=== PATIENT | female | born 1990 | race Caucasian/White ===

== ENCOUNTER 2021-10-12 08:31 | Outpatient (CLI) | payer BC, SELFPAY ==
--- NOTE | 2021-10-12 08:45 | CRLHL7_ITS ---
For Patients: As a result of the Century Cures Act, medical imaging exams and procedure reports are released immediately into your electronic medical record. You may view this report before your referring provider. If you have questions, please contact your health care provider. INDICATION: Evaluate anatomy. COMPARISON: none TECHNIQUE: Real time doty scale imaging of the fetus was performed as well as color Doppler analysis of the umbilical vessels. FINDINGS: Sonographic imaging demonstrates a single living intrauterine gestation. Fetus demonstrates a regular cardiac rate of 152 beats per minute. Fetus demonstrates multiple orientations throughout the examination. The placenta lies posteriorly without evidence of placenta previa. Amniotic fluid volume appears normal. Single deepest vertical pocket: 2.9 cm. The cervix is closed and measures 3.9 cm in length. The composite ultrasound gestational age is calculated at 21 weeks 2 days with an estimated sonographic due date of February 20, 2022. The estimated weight is 448 grams which lies at the 54th percentile. The following biometric measurements were obtained: Biparietal diameter: 4.4 cm/19 weeks 3 days less than the 3rd% Head circumference: 19.0 cm/21 weeks 2 days 28% Abdominal circumference: 17.1 cm/22 weeks 0 days 59% Femur length: 3.7 cm/21 week 6 days 48% The HC/AC ratio measures: 1.1 range (1.06-1.24) On anatomic survey, there is a normal appearance of the cerebral ventricles, cisterna magna and cerebellum. The nose, lips, and facial profile appear normal. 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 Additionally the nuchal fold appears to be at the upper limit of normal measuring just under 6 mm. The cervical, thoracic and lumbar spine are well visualized and appear normal. There is a normal four-chamber heart view and the left and right ventricular outflow tracts appear normal. diaphragm, stomach, kidneys and bladder appear normal. There is a normal three-vessel cord and cord insertion site. The right foot and right hand appear grossly normal. However the left hand may have 6 fingers and the left foot may also have 6 toes. Given these anomalies described above, a level II obstetrical ultrasound is recommended. IMPRESSION: Normal OB ultrasound exam with concordance of clinical and sonographic dating. However the anatomic survey suggests dolichocephaly, a nuchal fold toward the upper limit of normal at 6 mm, and possible polydactyly of the left hand and foot. A level II ultrasound is recommended. Dictated by Misha Kerr MD @ 10/12/2021 10:23:08 AM (Electronically Signed)
== END 2021-10-12 08:32 | disposition home or self-care (01) ==
LOC: US 08:33
PROVIDERS: Visit Provider Obstetrics & Gynecology
DX: Z34.92 Encounter for supervision of normal pregnancy, unspecified, second trimester (principal); O35.8XX0 Maternal care for other (suspected) fetal abnormality and damage, not applicable or unspecified; Z3A.21 21 weeks gestation of pregnancy
CPT/HCPCS: 76805

== ENCOUNTER 2021-11-30 10:09 | Outpatient (CLI) | payer BC, SELFPAY ==
[2021-12-01 18:45] LABS: Rapid Plasma Reagin (RPR) Non Reactive (Non Reactive)
== END 2021-11-30 10:10 | disposition home or self-care (01) ==
PROVIDERS: Visit Provider Physician Assistant
DX: Z34.93 Encounter for supervision of normal pregnancy, unspecified, third trimester (principal); Z3A.28 28 weeks gestation of pregnancy
CPT/HCPCS: 86592; 86850

== ENCOUNTER 2021-12-04 08:00 | Outpatient (CLI) | payer BC, SELFPAY | END 2021-12-04 08:01 | disposition home or self-care (01) | LOC: NFLDREF 12-15 09:16 | PROVIDERS: Visit Provider Physician Assistant | DX: Z34.93 Encounter for supervision of normal pregnancy, unspecified, third trimester (principal) | CPT/HCPCS: 82952 ==

== ENCOUNTER 2022-01-22 15:18 | Outpatient (CLI) | payer BC, SELFPAY ==
[2022-01-23 14:22] LABS: Strep B DNA Probe NEGATIVE (Negative)
[2022-01-23 15:36] LABS: Strep B Pen/Amox Allergy No
== END 2022-01-22 15:19 | disposition home or self-care (01) ==
PROVIDERS: Visit Provider Physician Assistant
DX: Z34.83 Encounter for supervision of other normal pregnancy, third trimester (principal); Z3A.36 36 weeks gestation of pregnancy
CPT/HCPCS: 87081; 87653

== ENCOUNTER 2022-02-13 00:50 | Inpatient (IN) | payer BC, SELFPAY ==
[2022-02-13] VITALS (16 sets, daily range): BP systolic 98–133; BP diastolic 58–84; PULSE 69–97; RESP 14–18; TEMP 36.5–37.1; O2SAT 96–100; BMI 23.1
--- OUTSIDE RECORDS SUMMARY | 2022-02-13 00:46 | XMS_ITS | Encounter Summary ---
:1990 Author Organization [place] Address [facility] [place] [address] Care Team Providers Name Role Phone Unavailable Primary Care Provider Unavailable Reason for Visit Reason Comments Ultrasound [id number] Encounter Details Date Type Department Care Team Description 11/08/2021 Office Visit [facility] Venu Narayan MD [address] [place] [address] Encounter for Maternal Yordy Cooney MD [address] [place] [address] follow-up ultrasound [facility] (Primary Dx) [address] [facility] [address] [place] [address] Social History Tobacco Use Types Packs/Day Years Used Date Smoking Tobacco: Never Assessed Sex Assigned at Date Recorded Not on file COVID-19 Exposure Response Date Recorded In the last 10 days, have you been in contact with No / Unsu re 11/08/2021 10:07 AM CDT someone who was confirmed or suspected to have Coronavirus/COVID-19? documented as of this encounter Progress Notes Yordy Cooney MD - 11/08/2021 10:45 AM CDT Please see Imaging tab under Chart Review for details of today's US at the [facility]. Yordy Cooney MD Maternal- Medicine documented in this encounter Plan of Treatment Not on filedocumented as of this encounter Visit Diagnoses Diagnosis Encounter for follow-up ultrasound of fe steve anatomy - Primary documented in this encounter
--- OUTSIDE RECORDS SUMMARY | 2022-02-13 00:46 | XMS_ITS | Clinical Summary ---
:1990 Author Organization [place] Address [address] [place] [address] Care Team Providers Name Role Phone Unavailable Primary Care Provider Unavailable Social History Tobacco Use Types Packs/Day Years Used Date Smoking Tobacco: Never Assessed Estimated Date of Delivery Comments Yes 02/18/2022 Based on last menstr ual period of 05/14/2021 Sex Assigned at Date Recorded Not on file Plan of Treatment Health Maintenance Due Date Last Done Comments ADVANCE CARE PLANNING 1990 ANNUAL REVIEW OF HM ORDERS 1989 HEPATITIS B IMMUNIZATION (1 1989 of 3 - 3-dose series) YEARLY PREVENTIVE VISIT 1989 HIV SCREENING 2004 HEPATITIS C SCREENING 12/09/2007 PAP 2010 DTAP/TDAP/TD IMMUNIZATION 2014 (1 - Tdap) PHQ-2 (once per calendar 03/18/2021 year) MATERNAL SCREENING 08/27/2021 OBGCT (OB) 10/29/2021 INFLUENZA VACCINE (#1) 2021 REPEAT ANTIBODY SCREEN (OB) 11/26/2021 COVID-19 Vaccine (4 - 12/04/2021 10/09/2021, 10/09/2021, Booster for Pfizer series) 07/18/2020, Additiona l history exists GROUP B STREP SCREENING 01/21/2022 IPV IMMUNIZATION Aged Out No longer eligi ble based on patient 's age to complete this topic MENINGITIS IMMUNIZATION Aged Out No longe r eligible based on patient 's age to complete this topic Pneumococcal Vaccine: Aged Out No longer eligible Pediatrics (0 to 5 Years) based on patient's age and At-Risk Patients (6 to to co mplete this topic 64 Years) Insurance Payer Benefit Plan / Subscriber ID Effective Dates Phone Addre ss Type Group BLUE PLUS BLUE PLUS [id number] 2019-Present [phone] [address] [id number] [address] [place] [address]
--- OUTSIDE RECORDS SUMMARY | 2022-02-13 00:46 | XMS_ITS | Encounter Summary ---
:1990 Author Organization [place] Address [address] [facility] [place] [address] Care Team Providers Name Role Phone Unavailable Primary Care Provider Unavailable Reason for Visit Consultation (Routine: Next available opening) - Pending Review Specialty Diagnoses / Procedures Referred By Contact Refer red To Contact Diagnoses related condition, antepartum JoyceJune [facility] [address] [place] [address] Referral ID Status Reason Start Date Expiration Date Visits V isits Requested Authorized [id number] Pending 10/13/2021 10/13/2022 1 1 Review Encounter Details Date Type Department Care Team Description 10/17/2021 Office Visit [facility] Daangelaveronica Violeta l [facility] [address] [id number] related Maternal Mabel Narayan MD [address] [place], [place] [address] condition, antepartum [facility] [address] [facility] [address] [place] [address] Social History Tobacco Use Types Packs/Day Years Used Date Smoking Tobacco: Never Assessed Sex Assigned at Date Recorded Not on file COVID-19 Exposure Response Date Recorded In the last 10 days, have you been in contact with No / Unsu re 10/17/2021 2:06 PM CDT someone who was confirmed or suspected to have Coronavirus/COVID-19? documented as of this encounter Plan of Treatment Not on filedocumented as of this encounter Visit Diagnoses Diagnosis related condition, antepartum documented in this encounter
--- OUTSIDE RECORDS SUMMARY | 2022-02-13 00:46 | XMS_ITS | Encounter Summary ---
:1990 Author Organization [place] Address [address] [place] [address] Care Team Providers Name Role Phone Unavailable Primary Care Provider Unavailable Encounter Details Date Type Department Care Team Description 11/08/2021 Travel Social History Tobacco Use Types Packs/Day Years [...] filedocumented as of this encounter Visit Diagnoses Not on filedocumented in this encounter
--- OUTSIDE RECORDS SUMMARY | 2022-02-13 00:46 | XMS_ITS | Encounter Summary ---
:1990 Author Organization [place] Address [address] [place] [address] Care Team Providers Name Role Phone Unavailable Primary Care Provider Unavailable Reason for Visit Reason Comments Genetic Counseling possible dolichocephaly, nuc neal fold upper end of normal, polydactyly Ultrasound L2-possible dolichocephaly, nuchal fold upper end of normal, polydactyly Encounter Details Date Type Department Care Team Description 10/17/2021 PRE VISIT [facility] Renetta Leone RN Maryanne ic Counseling Maternal Medicine ([facility] dolichocephaly, nuchal [address] fold [address] end of [address] normal, polydactyly); [place], [place] Ultrasound (L 2-possible [phone] dolichocephaly, nuchal [phone] fold upper end of normal, polydac tyly) Social History Tobacco Use Types Packs/Day Years Used Date Smoking Tobacco: Never Assessed Sex Assigned at Date Recorded Not on file documented as of this encounter Plan of Treatment Not on filedocumented as of this encounter Visit Diagnoses Not on filedocumented in this encounter
--- OUTSIDE RECORDS SUMMARY | 2022-02-13 00:46 | XMS_ITS | Encounter Summary ---
:1990 Author Organization [place] Address [facility] [place] [address] Care Team Providers Name Role Phone Unavailable Primary Care Provider Unavailable Reason for Referral Diagnostic Imaging Ultrasound (Routine) - Pending Review Specialty Diagnoses / Procedures Referred By Contact Refer red To Contact Diagnoses Suspected anomaly, antepartum, single or unspecified fetus Mabel Narayan MD Procedures [facility] US Comprehensive Single F/U [address] [place], [place] [address] Referral ID Status Reason Start Date Expiration Date Visits V isits Requested Authorized [id number] Pending 10/17/2021 10/17/2022 1 1 Review Reason for Visit Diagnostic Imaging Ultrasound (Routine) - Pending Review Specialty Diagnoses / Procedures Referred By Contact Refer red To Contact Diagnoses Suspected anomaly, antepartum, single or unspecified fetus Mabel Narayan MD Procedures [facility] Comprehensive Single F/U [address] [place], [place] [address] Referral ID Status Reason Start Date Expiration Date Visits V isits Requested Authorized [id number] Pending 10/17/2021 10/17/2022 1 1 Review Encounter Details Date Type Department Care Team Description 11/08/2021 Hospital Encounter [facility] Melissa Scruggs MD [address] [place], [place] [address] Suspected Maternal Yordy Cooney MD [address] [place] [address] anomaly, antepartum, Medicine Center single or [place] unspecified fetus [address] [facility] [address] [place] [address] Social History Tobacco Use Types [...] Not on filedocumented as of this encounter Procedures Procedure Name Priority Date/Time Associated Comments Diagnosis [facility] US COMPREHENSIVE Routine 11/08/2021 11:02 Suspected Results for this SINGLE F/U AM CDT anomaly, procedure are i n antepartum, single the resul ts or unspecified section. fetus documented in this encounter Results [facility] US Comprehensive Single F/U (11/08/2021 11:02 AM CDT) Anatomical Region Laterality Modality Ultrasound Specimen (Source) Anatomical Collection Method Collection Time Re ceived Time Location / / Volume Laterality 11/08/2021 10:32 AM CDT Impressions 11/08/2021 11:05 AM CDT IMPRESSION 1. [place] intrauterine at 2 5w3d gestational age here for completion of anatomy. 2. The remaining anatomic survey w as completed, no anomalies commonly detected by ultrasound were identified within the limits of ultrasound. 3. Growth parameters and estimated weight were consistent with established dates. 4. The amniotic fluid volume appeared no rmal. Narrative 11/08/2021 11:05 AM CDT Comp Follow Up Pat. Name: CHARLIE XIAO Study [place] e: 11/08/2021 10:32am Pat. NO: [id number] Referring ??MD: BIN GARCIA Site: [facility] Double Backer: Karen Smith RDMS : 1990 Age: 30 INDICATION Reevaluate growth and suboptimal a natomy METHOD Transabdominal ultrasound examination. V iew: Sufficient [place] . Number of fetuses: 1 DATING ? Date ?Details ?Gest. age ?NADIA LMP ?05/14/2021 ? 25 w + 3 d ? 02/18/2022 Prior assessment ? / 05/2021 ?GA: 9 w + 3 d ? 25 w + 4 d ? 02/17/2022 U/S ? 11/08/2021 ? based upon AC, BPD, Femur, HC ? 25 w + 1 d ? 02/20/2022 Assigned dating ?Dating performed on 10/17/2021, based on the LMP ?25 w + 3 d ? 02/18/2022 GENERAL EVALUATION Cardiac activity present. FHR 145 bpm. movements present. Presentation cephalic. Placenta Posterior. Umbilical cord 3 vessel cord. Amniotic fluid Amount of AF: normal. MVP 5.3 cm. BIOMETRY Main Biometry: BPD ?57.4 ?mm ? 23w 4d ?Kelsey LYNN ?85.0 ?mm ? 25w 4d ?Nicolaides HC ?227.8 ?mm ?24w 6d ?Hadlock Cerebellum tr ?28.0 ? mm ?25w 0d ?Nicolaides AC ?213.7 ?mm ?25w 6d ?55% ?Hadlock Femur ?48.5 ? mm ?26w 2d ?Hadlock Weight Calculation: EFW ? 851 ? g ? 54% ?Hadlock EFW (lb,oz) ? 1 lb 14 ? oz EFW by ?Hadlock ([id number]) Head / Face / Neck Biometry: Watch Inspector ? 4.9 ? mm CM ?4.6 ? mm ANATOMY The following structures appear normal: Head / Neck ? Cranium. Head size. Head shape. Lateral ventricles. Midline falx. Cavum septi pellucidi. Cerebellum. Cisterna magna. Thalami. Face ? Lips. Nose. Heart / Thorax ?4-chamber view. RVOT view. LVOT view. Aortic arch view. Bicaval view. Ductal arch view. Superior vena cava. Inferior vena cava. ? 0-mnxovn-xqegkgb view. ? Diaphragm. Abdomen ? Stomach. Kidneys. Bladder. Spine ?Cervical spine. Thoracic spine. Lumbar spine. Sacral spine. The following structures were documented previously: Face ? Profile. Gender: female. MATERNAL STRUCTURES Cervix ?Visualized ? Appearance: Appears Closed ? Approach - Transabdominal: Cervical length 47.4 mm Right Ovary ?Not examined Left Ovary ?Not examined RECOMMENDATION Thank-you for referring your patient for an ultrasound to reassess anatomy that was previously suboptimally seen on comprehensive survey. I discussed the findings on today's ultr asound with the patient. I reviewed the limitations of ultrasound. Further ultrasound studies as clinically indicated. Return to primary provider for continued care. If you have questions regarding today's evaluation or if we can be of further service, please contact the Maternal- Medicine Center. anomalies may be present but not detected Procedure Note Yordy Cooney MD - 11/08/2021Forma tting of this note might be different from the original. Comp Follow Up Pat. Name:HUMPHREY XIAOjoselo Date: 11/08/2021 10:32am Pat. NO: [id number] MD:JUNE CHARLEY [facility] Site:[place]her:ALONZO Jo :1990Age:30 INDICATION Reevaluate growth and suboptimal a natomy METHOD Transabdominal ultrasound examination. V iew: Sufficient [place] . Number of fetuses: 1 DATING Date Details Gest. age NADIA LMP 05/14/2021 25 w + 3 d 02/18/2022 Prior assessment 07/18/2021 GA: 9 w + 3 d 25 w + 4 d 02/17/2022 U/S 11/08/2021 based upon AC, BPD, Femur, HC 25 w + 1 d 02/20/2022 Assigned dating Dating performed on 10/17, based on the LMP 25 w + 3 d 02/18/2022 GENERAL EVALUATION Cardiac activity present. FHR 145 bpm. movements present. Presentation cephalic. Placenta Posterior. Umbilical cord 3 vessel cord. Amniotic fluid Amount of AF: normal. MVP 5.3 cm. BIOMETRY Main Biometry: BPD 57.4 mm 23w 4d Hadlock OFD 85.0 mm 25w 4d Nicolaides HC 227.8 mm 24w 6d Hadlock Cerebellum tr 28.0 mm 25w 0d Nicolaides AC 213.7 mm 25w 6d 55% Hadlock Femur 48.5 mm 26w 2d Hadlock Weight Calculation: EFW 851 g 54% Hadlock EFW (lb,oz) 1 lb 14 oz EFW by Hadlock ([id number]) Head / Face / Neck Biometry: Watch Inspector 4.9 mm CM 4.6 mm ANATOMY The following structures appear normal: Head / Neck Cranium. Head size. Head sha pe. Lateral ventricles. Midline falx. Cavum septi pellucidi. Cerebellum. Cisterna magna. Thalami. Face Lips. Nose. Heart / Thorax 4-chamber view. RVOT view . LVOT view. Aortic arch view. Bicaval view. Ductal arch view. Superior vena cava. Inferior vena cava. 0-uchdvl-qnewtwi view. Diaphragm. Abdomen Stomach. Kidneys. Bladder. Spine Cervical spine. Thoracic spine. Suyapa mbar spine. Sacral spine. The following structures were documented previously: Face Profile. Gender: female. MATERNAL STRUCTURES Cervix Visualized Appearance: Appears Closed Approach - Transabdominal: Cervical emerita gth 47.4 mm Right Ovary Not examined Left Ovary Not examined RECOMMENDATION Thank-you for referring your patient for an ultrasound to reassess anatomy that was previously suboptimally seen on comprehensive survey. I discussed the findings on today's ultr asound with the patient. I reviewed the limitations of ultrasound. Further ultrasound studies as clinically indicated. Return to primary provider for continued care. If you have questions regarding today's evaluation or if we can be of further service, please contact the Maternal- Medicine Center. anomalies may be present but not detected IMPRESSION 1. [place] intrauterine at 2 5w3d gestational age here for completion of anatomy. 2. The remaining anatomic survey w as completed, no anomalies commonly detected by ultrasound were identified within the limits of ultrasound. 3. Growth parameters and estimated weight were consistent with established dates. 4. The amniotic fluid volume appeared no rmal. Mabel Narayan MD [facility] US ORDERABLES documented in this encounter Visit Diagnoses Diagnosis Suspected anomaly, antepartum, sin gle or unspecified fetus documented in this encounter
--- OUTSIDE RECORDS SUMMARY | 2022-02-13 00:46 | XMS_ITS | Encounter Summary ---
:1990 Author Organization [place] Address [address] [place] [address] Care Team Providers Name Role Phone Unavailable Primary Care Provider Unavailable Encounter Details Date Type Department Care Team Description 10/17/2021 Travel Social History Tobacco Use Types Packs/Day [...]
--- OUTSIDE RECORDS SUMMARY | 2022-02-13 00:47 | XMS_ITS | Encounter Summary ---
:1990 Author Organization [place] Address [address] [place] [address]. [place] [address] Care Team Providers Name Role Phone Unavailable Primary Care Provider Unavailable Reason for Referral Diagnostic Imaging Ultrasound (Routine) - Pending Review Specialty Diagnoses / Procedures Referred By Contact Refer red To Contact Diagnoses Suspected anomaly, antepartum, single or unspecified fetus Mabel Narayan MD Procedures [facility] US Comprehensive Single F/U [address] [place], [place] [address] Referral ID Status Reason Start Date Expiration Date Visits V isits Requested Authorized [id number] Pending 10/17/2021 10/17/2022 1 1 Review Reason for Visit Reason Comments Ultrasound L2-polydactyly, possible dol ichocephaly, nuchal fold upper limit of normal Encounter Details Date Type Department Care Team Description 10/17/2021 Office Visit [facility] Bin Garcia [address] [place] [id number] Suspected Maternal Mabel Narayan MD [address] [place], [place] [address] anomaly, antepartum, Medicine Center single or un specified [place] fetus (Primary Dx) [address] [facility] [address] [place] [address] Social History Tobacco Use Types Packs/Day Years Used Date Smoking Tobacco: Never Assessed Sex Assigned at Date Recorded Not on file COVID-19 Exposure Response Date Recorded In the last 10 days, have you been in contact with No / Unsu re 10/17/2021 2:06 PM CDT someone who was confirmed or suspected to have Coronavirus/COVID-19? documented as of this encounter Progress Notes Mabel Narayan MD - 10/17/2021 2:45 PM CDT Please see Imaging tab under Chart Review for details of today's visit. Mabel Narayan documented in this encounter Plan of Treatment Not on filedocumented as of this encounter Results [facility] US Comprehensive Single F/U (11/08/2021 11:02 AM [...] Study [place] e: 11/08/2021 10:32am Pat. NO: [id number] Referring ??MD: BIN GARCIA Site: [facility] Fire Boss: Karen Smith RDMS : 1990 Age: 30 INDICATION Reevaluate growth and suboptimal a natomy METHOD Transabdominal ultrasound examination. V iew: Sufficient [place] . Number of fetuses: 1 DATING ? Date ?Details ?Gest. age ?NADIA LMP ?05/14/2021 ? 25 w + 3 d ? 02/18/2022 Prior assessment ? 07/18/2021 ?GA: 9 w + 3 d ? [...] lb 14 ? oz EFW by ?Hadlock ([id number]) Head / Face / Neck Biometry: Adjuster Arbitrator ? 4.9 ? mm CM ?4.6 ? mm ANATOMY The following structures appear normal: Head / Neck ? Cranium. Head size. Head shape. Lateral ventricles. Midline falx. Cavum septi pellucidi. Cerebellum. Cisterna magna. Thalami. Face ? Lips. Nose. Heart / Thorax ?4-chamber view. RVOT view. LVOT view. Aortic arch view. Bicaval view. Ductal arch view. Superior vena cava. Inferior vena cava. ? 8-glxbhf-efraxht view. ? Diaphragm. Abdomen ? Stomach. Kidneys. [...] from the original. Comp Follow Up Pat. Name:Barrie XIAO Date: 11/08/2021 10:32am Pat. NO: [id number] MD:FERNANDA REDMOND Site:[place]her:ALONZO Jo :1990Age:30 INDICATION Reevaluate growth and suboptimal [...] 1 lb 14 oz EFW by Hadlock ([id number]) Head / Face / Neck Biometry: Adjuster Arbitrator 4.9 mm CM 4.6 mm ANATOMY The following structures appear normal: Head / Neck Cranium. Head size. Head sha pe. Lateral ventricles. Midline falx. Cavum septi pellucidi. Cerebellum. Cisterna magna. Thalami. Face Lips. Nose. Heart / Thorax 4-chamber view. RVOT view . LVOT view. Aortic arch view. Bicaval view. Ductal arch view. Superior vena cava. Inferior vena cava. 2-wftvzj-ofjaiix view. Diaphragm. Abdomen Stomach. Kidneys. Bladder. Spine [...] volume appeared no rmal. Mabel Narayan MD [facility] US ORDERABLES documented in this encounter Visit Diagnoses Diagnosis Suspected anomaly, antepartum, sin gle or unspecified fetus - Primary Suspected anomaly, antepartum, sin gle or unspecified fetus documented in this encounter
--- OUTSIDE RECORDS SUMMARY | 2022-02-13 00:47 | XMS_ITS | Encounter Summary ---
:1990 Author Organization [facility] Address [address] [place] [address] Care Team Providers Name Role Phone Unavailable Primary Care Provider Unavailable Reason for Referral Consultation (Routine: Next available opening) - Pending Review Specialty Diagnoses / Procedures Referred By Contact Refer red To Contact Diagnoses related condition, antepartum Joyce[place] [id number] [place] [address] Referral ID Status Reason Start Date Expiration Date Visits V isits Requested Authorized [id number] Pending 10/13/2021 10/13/2022 1 1 Review iagnostic Imaging Ultrasound (Routine) - Pending Review Specialty Diagnoses / Procedures Referred By Contact Refer red To Contact Diagnoses related condition, antepartum June Procedures [facility] [address] [facility] [place] [address] Referral ID Status Reason Start Date Expiration Date Visits V isits Requested Authorized [id number] Pending 10/13/2021 10/13/2022 1 1 Review onsultation (Routine) - Pending Review Specialty Diagnoses / Procedures Referred By Contact Refer red To Contact Diagnoses related condition, antepartum June Rh Maternal Med [facility] [address] [facility] [address] [address] [place] [address] Phone: Fax: Referral ID Status Reason Start Date Expiration Date Visits V isits Requested Authorized [id number] Pending 10/13/2021 10/13/2022 1 1 Review Encounter Details Date Type Department Care Team Description 10/13/[address] [facility] Sebastian Garcia related Maternal FAMILY[facility]ALTH condition, [facility] antepartum (Primary [place] [address]) [address] [place], [place] [address] [address] [place], [place] [phone] [address] (Work) [phone] Social History Tobacco Use Types Packs/Day Years Used Date Smoking Tobacco: Never Assessed Sex Assigned at Date Recorded Not on file documented as of this encounter Plan of Treatment Scheduled Referrals Name Type Priority Associated Diagnoses Order S chedule Mat Med Ctr Referral Routine related Expec peggy: Referral - condition, 022 antepartum (Approximate), Expires: 04/11/2022 MF Genetic Referral Routine: Next related Expected: Counseling available opening condition, 10/13/2021 antepartum (Approximate), Expires: 10/13/2022 documented as of this encounter Results [facility] US Comprehensive Single (10/17/2021 3:12 PM CDT) Anatomical Region Laterality Modality Ultrasound Specimen (Source) Anatomical Collection Method Collection Time Re ceived Time Location / / Volume Laterality 10/17/2021 2:22 PM CDT Impressions 10/18/2021 10:34 AM CDT IMPRESSION 1) Enamorado intrauterine at 2 2w 2d gestational age. 2) None of the anomalies commonly detect ed by ultrasound were evident in the detailed anatomic survey described above, although evaluation of anatomy was suboptimal as noted above. 3) Growth parameters and estimated weight were consistent with an appropriate for gestation age pattern of growth. 4) The amniotic fluid volume appeared no rmal. Narrative 10/18/2021 10:34 AM CDT Comprehensive Pat. Name: CHARLIE XIAO Study Clayton e: 10/17/2021 2:22pm Pat. NO: [id number] Referring ??MD: BIN GARCIA Site: [facility] Forms Analyst: Jerad Dugan RDMS : 1990 Age: 30 INDICATION Possible dolichocephaly and polydactyl o n outside ultrasound. METHOD Transabdominal ultrasound examination. V iew: Suboptimal view: limited by position Enamorado . Number of fetuses: 1 DATING ? Date ?Details ?Gest. age ?NADIA LMP ?05/14/2021 ? 22 w + 2 d ? 02/18/2022 Prior assessment ? 5/ 05/2021 ?GA: 9 w + 3 d ? 22 w + 3 d ? 02/17/2022 U/S ? 10/17/2021 ?based upon AC, BPD, Femur, HC ? 21 w + 4 d ? 02/23/2022 Assigned dating ?Dating performed on 10/17/2021, based on the LMP ?22 w + 2 d ? 02/18/2022 GENERAL EVALUATION Cardiac activity present. FHR 149 bpm. movements present. Presentation Variable. Placenta Posterior, No Previa, > 2 cm fr om internal os. Umbilical cord 3 vessel cord. Amniotic fluid Amount of AF: normal. MVP 3.7 cm. BIOMETRY Main Biometry: BPD ?47.2 ?mm ? 20w 2d ?Hadlock OFD ?73.7 ?mm ? 22w 5d ?Nicolaides HC ?195.4 ?mm ?21w 5d ?Hadlock Cerebellum tr ?24.3 ? mm ?22w 2d ?Nicolaides AC ?169.2 ?mm ?21w 6d ?30% ?Hadlock Femur ?39.1 ? mm ?22w 4d ?Hadlock Humerus ?37.0 ?mm ? 22w 6d ?Brian Weight Calculation: EFW ? 474 ? g ? 33% ?Hadlock EFW (lb,oz) ? 1 lb 1 ?oz EFW by ?Hadlock ([id number]) Head / Face / Neck Biometry: Hand Buffer ? 3.4 ? mm CM ?4.8 ? mm Nasal bone ? 7.2 ? mm ANATOMY The following structures appear normal: Head / Neck ? Cranium. Head size. Head shape. Lateral ventricles. Choroid plexus. Midline falx. Cavum septi pellucidi. Cerebellum. Cisterna magna. ? Parenchyma. Thalami. Vermis. ? Neck. Face ? Lips. Profile. Nose. Maxilla. Mandible. Orbits. Lens. Heart / Thorax ?4-chamber view. RVOT view. LVOT view. Situs. Aortic arch view. 3-vessel view. 7-ulrclb-vscsaqr view. Cardiac position. Cardiac size. Cardiac ? rhythm. ? Right lung. Left lung. Diaphragm. Abdomen ? Abdominal wall. Cord insertion. Stomach. Kidneys. Bladder. Liver. Bowel. Genitals. Spine ?Cervical spine. Thoracic spine. Lumbar spine. Sacral spine. Extremities / Skeleton ?Rig ht arm. Right hand. Left arm. Left hand. Right leg. Right foot. Left leg. Left foot. The following structures could not be ad equately visualized: Heart / Thorax ?Bicaval view. Ductal arch view. Superior vena cava. Inferior vena cava. Gender: female. MATERNAL STRUCTURES Cervix ?Visualized ? Appearance: Appears Closed ? Approach - Transabdominal: Cervical length 33.3 mm Right Ovary ?Visualized Left Ovary ?Visualized RECOMMENDATION We discussed the findings on today's ult rasound with the patient. We reviewed that polydactyly was not not ed on today's US. While Charlie is beyond the gestational age at which the nuchal fold is typically assessed, the measurement was within normal limits. We reviewed th at given prior question of thickened nuchal fold, which has been associated with an increased risk for aneuploidy, we reviewed the options of cell-free DNA screening a nd genetic amniocentesis for further aneuploidy assessment. The patient declined all further aneuploidy screening and diagnostic tests at this time. We reviewed that the HC and head s hape measured within normal limits today and that the dolicocephaly is likely a normal finding. A repeat US has been scheduled here in 3 weeks to re-evaluate sachin nichole that was suboptimally seen today and biometric parameters will also be re-evaluated at that time. Return to primary provider for continued care. Thank you for the opportunity to partici vanessa in the care of this patient. If you have questions regarding today's evaluation or if we can be of further service, please contact the [facility]. anomalies may be present but not detected Procedure Note Mabel Narayan MD - 10/18/2021Formatt ing of this note might be different from the original. Comprehensive Pat. Name:Barrie XIAO Date: 10/17/2021 2:22pm Pat. NO: [id number] MD:[facility]ALONZO Baker :1990Age:30 INDICATION Possible dolichocephaly and polydactyl o n outside ultrasound. METHOD Transabdominal ultrasound examination. V iew: Suboptimal view: limited by position [place]orado . Number of fetuses: 1 DATING Date Details Gest. age NADIA LMP 05/14/2021 22 w + 2 d 02/18/2022 Prior assessment 07/18/2021 GA: 9 w + 3 d 22 w + 3 d 02/17/2022 U/S 10/17/2021 based upon AC, BPD, Femur, HC 21 w + 4 d 02/23/2022 Assigned dating Dating performed on 10/17, based on the LMP 22 w + 2 d 02/18/2022 GENERAL EVALUATION Cardiac activity present. FHR 149 bpm. movements present. Presentation Variable. Placenta Posterior, No Previa, > 2 cm fr om internal os. Umbilical cord 3 vessel cord. Amniotic fluid Amount of AF: normal. MVP 3.7 cm. BIOMETRY Main Biometry: BPD 47.2 mm 20w 2d Hadlock OFD 73.7 mm 22w 5d Nicolaides HC 195.4 mm 21w 5d Hadlock Cerebellum tr 24.3 mm 22w 2d Nicolaides AC 169.2 mm 21w 6d 30% Hadlock Femur 39.1 mm 22w 4d Hadlock Humerus 37.0 mm 22w 6d Brian Weight Calculation: EFW 474 g 33% Hadlock EFW (lb,oz) 1 lb 1 oz EFW by Hadlock ([id number]) Head / Face / Neck Biometry: Hand Buffer 3.4 mm CM 4.8 mm Nasal bone 7.2 mm ANATOMY The following structures appear normal: Head / Neck Cranium. Head size. Head sha pe. Lateral ventricles. Choroid plexus. Midline falx. Cavum septi pellucidi. Cerebellum. Cisterna magna. Parenchyma. Thalami. Vermis. Neck. Face Lips. Profile. Nose. Maxilla. Sherley ble. Orbits. Lens. Heart / Thorax 4-chamber view. RVOT view . LVOT view. Situs. Aortic arch view. 3- vessel view. 4-oyggwe-cadsdqt view. Cardiac position. Cardiac size. Cardiac rhythm. Right lung. Left lung. Diaphragm. Abdomen Abdominal wall. Cord insertion. Stomach. Kidneys. Bladder. Liver. Bowel. Genitals. Spine Cervical spine. Thoracic spine. Suyapa mbar spine. Sacral spine. Extremities / Skeleton Right arm. Right hand. Left arm. Left hand. Right leg. Right foot. Left leg. Left foot. The following structures could not be ad equately visualized: Heart / Thorax Bicaval view. Ductal arch view. Superior vena cava. Inferior vena cava. Gender: female. MATERNAL STRUCTURES Cervix Visualized Appearance: Appears Closed Approach - Transabdominal: Cervical emerita gth 33.3 mm Right Ovary Visualized Left Ovary Visualized RECOMMENDATION We discussed the findings on today's [facility] with the patient. We reviewed that polydactyly was not not ed on today's US. While Charlie is beyond the gestational age at which the nuchal fold is typically assessed, the measurement was within normal limits. We reviewed th at given prior question of thickened nuchal fold, which has been associated with an increased risk for aneuploidy, we reviewed the options of cell-free DNA screening a nd genetic amniocentesis for further aneuploidy assessment. The patient declined all further aneuploidy screening and diagnostic tests at this time. We reviewed that the HC and head s hape measured within normal limits today and that the dolicocephaly is likely a normal finding. A repeat US has been scheduled here in 3 weeks to re-evaluate sachin nichole that was suboptimally seen today and biometric parameters will also be re-evaluated at that time. Return to primary provider for continued care. Thank you for the opportunity to partici vanessa in the care of this patient. If you have questions regarding today's evaluation or if we can be of further service, please contact the [facility]. anomalies may be present but not detected IMPRESSION 1) Enamorado intrauterine at 2 2w 2d gestational age. 2) None of the anomalies commonly detect ed by ultrasound were evident in the detailed anatomic survey described above, although evaluation of anatomy was suboptimal as noted above. 3) Growth parameters and estimated weight were consistent with an appropriate for gestation age pattern of growth. 4) The amniotic fluid volume appeared no rmal. Hedy Joyce [facility] US ORDERABLES documented in this encounter Visit Diagnoses Diagnosis related condition, antepartum - Primary related condition, antepartum documented in this encounter
--- OUTSIDE RECORDS SUMMARY | 2022-02-13 00:47 | XMS_ITS | Encounter Summary ---
:1990 Author Organization [place] Address [address] [facility] [place] [address] Care Team Providers Name Role Phone Unavailable Primary Care Provider Unavailable Reason for Referral Diagnostic Imaging Ultrasound (Routine) - Pending Review Specialty Diagnoses / Procedures Referred By Contact Refer red To Contact Diagnoses related condition, antepartum FitangelaoffJune Procedures [place] [address] [place] [address] Referral ID Status Reason Start Date Expiration Date Visits V isits Requested Authorized [id number] Pending 10/13/2021 10/13/2022 1 1 Review Reason for Visit Diagnostic Imaging Ultrasound (Routine) - Pending Review Specialty Diagnoses / Procedures Referred By Contact Refer red To Contact Diagnoses related condition, antepartum Fitzl, June Procedures [place] [address] [place] [id number] Referral ID Status Reason Start Date Expiration Date Visits V isits Requested Authorized [id number] Pending 10/13/2021 10/13/2022 1 1 Review Encounter Details Date Type Department Care Team Description 10/17/2021 Hospital Encounter [facility] [place]le [place] [address] [id number] related Maternal Mabel Narayan MD [address] [place], [place] [address] condition, Medicine Center antepartum [place] [address] [facility] [address] [place] [address] Social History Tobacco Use Types [...] Procedure Name Priority Date/Time Associated Comments Diagnosis [facility] US COMPREHENSIVE Routine 10/17/2021 3:12 PM rela peggy Results for this SINGLE CDT condition, procedure are i n antepartum the results section. documented in this encounter Results [facility] US Comprehensive Single (10/17/2021 3:12 PM CDT) [...] Study Clayton e: 10/17/2021 2:22pm Pat. NO: [id number] Referring ??MD: BIN GARCIA Site: [facility] Calciminer: Jerad Dugan RDMS : 1990 Age: 30 INDICATION Possible dolichocephaly and polydactyl o n outside ultrasound. METHOD Transabdominal ultrasound examination. V iew: Suboptimal view: limited by position [place]amorado . Number of fetuses: 1 DATING ? Date ?Details ?Gest. age ?NADIA LMP ?05/14/2021 ? 22 w + 2 d ? 02/18/2022 Prior assessment ? / [...] Biometry: BPD ?47.2 ?mm ? 20w 2d ?Kelsey LYNN ?73.7 ?mm ? 22w 5d ?Nicolaides HC ?195.4 ?mm ?21w 5d ?Hadlock Cerebellum tr ?24.3 ? mm ?22w 2d ?Nicolaides AC ?169.2 ?mm ?21w 6d ?30% ?Hadlock Femur ?39.1 ? mm ?22w 4d ?Hadlock Humerus ?37.0 ?mm ? 22w 6d ?Brian Weight Calculation: EFW ? 474 ? g ? 33% ?Hadlock EFW (lb,oz) ? 1 lb 1 ?oz EFW by ?Hadlock ([id number]) Head / Face / Neck Biometry: Drilling Rig Operator ? 3.4 ? mm CM ?4.8 ? [...] view. Situs. Aortic arch view. 3-vessel view. 5-turele-szwwmxx view. Cardiac position. Cardiac size. Cardiac ? [...] be different from the original. Comprehensive Pat. Name:Shirley XIAOkathleeny Date: 10/17/2021 2:22pm Pat. NO: [id number] MD:HEDY CHARLEY REDMOND [facility]ALONZO Baker :1990Age:30 INDICATION Possible dolichocephaly and polydactyl [...] 1 lb 1 oz EFW by Hadlock ([id number]-FL) Head / Face / Neck Biometry: Drilling Rig Operator 3.4 mm CM 4.8 mm Nasal bone [...] Situs. Aortic arch view. 3- vessel view. 7-wwddcs-mjggwlr view. Cardiac position. Cardiac size. Cardiac rhythm. [...] The amniotic fluid volume appeared no rmal. [facility] documented in this encounter Visit Diagnoses Diagnosis related condition, antepartum documented in this encounter
[2022-02-13] MEDS: LACTATED RINGERS 1000 ML 1,000 ML 1125 ML IV (01:10)
[2022-02-13] MEDS: LIDOCAINE 1% MDV 20 ML INJECTION (01:35)
[2022-02-13] MEDS: OXYTOCIN 10 UNIT/ML INJ IM (01:35)
--- NOTE | 2022-02-13 01:50 | W.PM.LDBA ---
Subjective History of Present Illness Date Seen: 02/13/22 Narrative: Patient is being admitted to Labor and Delivery for delivery after SROM. She is a 31 year old at 39 2/7 weeks gestation. Her full history and physical was dictated by Dr. Ohara on 01/29/22. Please see this for details. Patient states that she was sleeping and woke up after feeling watery like discharge, came in to the hospital right away, states that this is also when she felt like uterine contractions started. Denies vaginal bleeding. OB - H&P: Exam Physical Exam: Vital signs: Pulse BP Pulse Ox 86 132/83 100 02/13/22 00:56 02/13/22 00:56 02/13/22 01:24 Narrative: VITAL SIGNS: As noted above. GENERAL APPEARANCE: Alert, cooperative female in pain MOOD & AFFECT: Normal. ABDOMEN: Gravid, non tender Cervix: 4cm/90%/vx/0 EXTREMITIES: Nonedematous. Well perfused. Nontender. NST:125bpm/moderate variability/positive accelerations/1 late like deceleration/regular uterine contractions OB - Problem Based A/P Additional Plan (1) : Status: Acute Plan Patient in active labor, symptomatic. Delivered quickly please refer to delivery note for further details.
--- NOTE | 2022-02-13 01:57 | PM.OBPRCVD ---
Procedure Delivery date: 02/13/22 Procedure Done: Global Intrapartal Events: Precipitous Labor <3 Hrs Delivery monitor: external FHT Route of delivery: Episiotomy description: None Laceration description: Perineal - 1st Degree Delivery repair: Vicryl Estimated blood loss (mL): 100 Anesthesia type: Local Disposition: floor Complications: None Narrative: The patient is a 31 year-old G 3 P 3003 admitted on 02/13/2022 at 39 Weeks, 2 Days gestation in labor after SROM.? Cervical exam on admission was 4 cm/90 % effaced/0 station with membranes ruptured in vertex presentation.? Contractions were every 2-3 minutes.? heart rate demonstrated baseline 130 bpm with moderate variability, positive accelerations, 1 late like deceleration; a category 2 tracing.? SROM occurred at 2330 with clear fluid. ? Labor Analgesia:? None ? Pitocin:? No ? Labor onset:? 2330 ? Complete:? 0123 ? Pushing:? 0124 ? heart tones during second stage were category 2. ? At 0125 a viable female delivered in vertex PRABHU presentation over intact perineum via spontaneous vaginal delivery.? was placed on maternal abdomen.? Cord was clamped and cut after a 30-60 second delay.? Nose and mouth were bulb suctioned.? Infant weight pending.? 8 at 1 minute and 9 at 5 minutes.? Shoulder dystocia: No.? Nuchal cord: [no]. ? Placenta delivered spontaneously and complete at 0130 with a 3 vessel cord. ? Mother and were stable after delivery. ? Lacerations:? 1st degree, repaired with Vicryl 3-0. ? Blood loss: 100 mL. Blood loss measurement type: QBL ? Sponge and needles counts are correct. [place] Gender: Female presentation: vertex Placental Delivery Description: Spontaneous Cord Description: 3 Vessels
[2022-02-13 02:10] LABS: SARS PCR* Negative SARS-CoV-2 (Negative)
[2022-02-13] MEDS: DOCUSATE SODIUM 100 MG CAPSULE PO (08:45)
[2022-02-13] MEDS: IBUPROFEN 600 MG TABLET PO ×2 (08:45→15:01)
[2022-02-14 03:30] VITALS: BP 109/52; PULSE 78; RESP 16; TEMP 36.9; O2SAT 96
[2022-02-14 05:44] LABS: Hemoglobin* 13.3 gm/dL (12.0-16.0)
--- NOTE | 2022-02-14 08:31 | PM.OBDSVD1 ---
DS: Providers Provider Time Seen by Provider: 08:31 Date Seen: 02/14/22 Date of admission: 02/13/22 00:50 Primary care physician: Not a Local Provider Admitting Clinician: Kathryn Galdamez MD Attending Physician on discharge: Sarath Sosa APRN, CNM Date of Discharge: 02/14/22 DS: Diagnosis Discharge Diagnosis (1) NVD (normal vaginal delivery): Status: Acute (2) Lactating mother: Status: Acute Exam Narrative: Exam Narrative: VSS, afebrile GENERAL APPEARANCE: ?normal affect, alert, no distress MOOD: ?appropriate HEENT: normocephalic, neck supple, full ROM CHEST: ?Symmetrical chest wall movement. ?Normal respiratory effort. ?Clear to auscultation HEART: ?regular rate and rhythm ABDOMEN: ?soft, non-tender. Uterine fundus is firm, 1 fingerbreadth below Umbilicus, Midline and is appropriate for the stage of recovery. ?Bowel sounds present. PERINEUM: ?mild edema of the perineum, there is a 1st degree laceration that is healing well. EXTREMITIES: ?normal and no edema Const: Vital Signs, click to edit/add: Vital Signs - 24 hr 02/13/22 08:47 02/13/22 12:44 02/13/22 16:34 Temperature 98.0 F 97.7 F 98.1 F Pulse Rate [Pulse Oximeter] 81 94 82 Respiratory Rate 16 16 16 Blood Pressure [Le ft Arm] 114/74 98/64 110/73 Pulse Oximetry 96 96 96 Oxygen Delivery Me thod Room Air Room Air Room Air 02/13/22 19:30 02/13/22 23:20 02/14/22 03:30 Temperature 98.2 F 98.8 F 98.5 F Pulse Rate [Pulse Oximeter] 81 82 78 Respiratory Rate 16 14 16 Blood Pressure [Le ft Arm] 110/80 104/84 109/52 L Pulse Oximetry 96 98 96 Oxygen Delivery Me thod Room Air Room Air Room Air OB - DS: Summary Hospital Course Hospital Course: The patient is a 31 year old G 3 P 3 at 39.2 weeks gestation that was admitted to the Center on 02/13/22 for labor. She had an uncomplicated vaginal delivery. She delivered a viable female infant. . The patient feels well. The pain is well controlled with current medications. She has no new complaints. She is breast feeding and reports things are going well.? the patient has done well.? Vitals have been stable.? She has remained afebrile.? Has a good appetite, is tolerating a general diet. She is voiding without difficulty.? She is passing gas and has had a bowel movement.? She is ambulating and denies any dizziness.? Has Small amount of rubra lochia. Peripartum Data Infant delivery method: Vaginal Laceration description: Perineal - 1st Degree complications: none [place] Gender: Female Time Spent with Patient Time attestation: Total time spent providing and/or coordinating discharge services: Discharge Plan Discharge Disposition: Home, Self-Care Date of Admission: 02/13/22 00:50 Attending Provider on Discharge: Colleen Sosa Primary Care Provider: Provider,Not a Local Condition: Stable Anticipated Discharge Date/Time: 02/14/22 12:38 Discharge Medications: New docusate sodium 100 mg Capsule 100 mg PO BID PRNQty: 100 0RF Rx Instructions: Eulogio 1 cap 1-2 times a day as needed for constipation ibuprofen 600 mg Tablet 600 mg PO Q6H PRNQty: 60 0RF Continued prenat.vits,leon,owf-btqy-ezflu Tablet 1 tab PO QDAY Discharge Orders: Discharge Order (Routine); Ordered 02/14/22 Ordered By: Colleen Sosa Patient Education: OB Over the Counter Medication Information, OB Vaginal/Breast Feeding Additional Instructions: Follow up in 2 and 6 weeks. Activity Level: Activity as Tolerated Discharge Diet: Regular Follow Up Appointments: Provider,Not a Local [Primary Care Provider] - Forms: [employer] Info Instructions
[2022-02-14 09:12] VITALS: BP 105/70; PULSE 90; RESP 16; TEMP 36.7; O2SAT 96
[2022-02-14 09:33] VITALS: RESP 16
[2022-02-14] MEDS: IBUPROFEN 600 MG TABLET PO (09:53)
[2022-02-14] MEDS: DOCUSATE SODIUM 100 MG CAPSULE PO (09:54)
[2022-02-14 13:07] VITALS: BP 114/67; PULSE 76; RESP 16; TEMP 36.7; O2SAT 96
== END 2022-02-14 13:55 | disposition home or self-care (01) | DRG 560 ==
PROVIDERS: Admitting Provider Obstetrics & Gynecology; Visit Provider Obstetrics & Gynecology
DX: O62.3 Precipitate labor (principal); O70.0 First degree perineal laceration during delivery; Z37.0 Single live birth; Z3A.39 39 weeks gestation of pregnancy
CPT/HCPCS: 36415; 85018; 85461; 87635; 99213; A9270; J2590; J2791; J7120

== ENCOUNTER 2022-02-20 15:30 | Outpatient (CLI) | payer BC, SELFPAY ==
--- OUTSIDE RECORDS SUMMARY | 2022-02-20 15:35 | XMS_ITS | Encounter Summary ---
:1990 Author Organization [place] Address [address] [place] [id number] Care Team Providers Name Role Phone Unavailable [...]
--- OUTSIDE RECORDS SUMMARY | 2022-02-20 15:36 | XMS_ITS | Encounter Summary ---
:1990 Author Organization [place] Address [address] [facility] [place] [address] Care Team Providers Name Role Phone Unavailable Primary Care Provider Unavailable Reason for Referral Diagnostic Imaging Ultrasound (Routine) - Pending Review Specialty Diagnoses / Procedures Referred By Contact Refer red To Contact Diagnoses related condition, antepartum FitangelaoffJune Procedures [place] [address] [place] [address] Referral ID Status Reason Start Date Expiration Date Visits V isits Requested Authorized [id number] Pending 10/13/2021 10/13/2022 1 1 Review Reason for Visit Diagnostic Imaging Ultrasound (Routine) - Pending Review Specialty Diagnoses / Procedures Referred By Contact Refer red To Contact Diagnoses related condition, antepartum Fitzl, June Procedures [place] [address] [place] [address] Referral ID Status Reason Start Date Expiration Date Visits V isits Requested Authorized [id number] Pending 10/13/2021 10/13/2022 1 1 Review Encounter Details Date Type Department Care Team Description 10/17/2021 Hospital Encounter [facility] Danielle Leon [place] [address] [id number] related Maternal Mabel Narayan MD [address] [place], [place] [address] condition, Medicine Center antepartum [place] [address] [facility] [address] [place] [address] Social History Tobacco Use Types [...] Procedure Name Priority Date/Time Associated Comments Diagnosis [facility] US COMPREHENSIVE Routine 10/17/2021 3:12 PM rela peggy Results for this SINGLE CDT condition, procedure are i n antepartum the results section. documented in this encounter Results [facility] US Comprehensive Single (10/17/2021 3:12 PM CDT) [...] Study Clayton e: 10/17/2021 2:22pm Pat. 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 3.4 ? mm CM ?4.8 [...] view. Situs. Aortic arch view. 3-vessel view. 3-tukiip-ugxqhfs view. Cardiac position. Cardiac size. Cardiac ? [...] Name:Shirley XIAOkathleeny Date: 10/17/2021 2:22pm Pat. 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 Aortic arch view. 3- vessel view. 2-ilyjej-blqkjoh view. Cardiac position. Cardiac size. Cardiac rhythm. [...] amniotic fluid volume appeared no rmal. [facility] documented in this encounter Visit Diagnoses Diagnosis related condition, antepartum documented in this encounter
--- OUTSIDE RECORDS SUMMARY | 2022-02-20 15:36 | XMS_ITS | Encounter Summary ---
:1990 Author Organization [place] Address [address] [place] [address]. [place] [address] Care Team Providers Name Role Phone Unavailable Primary Care Provider Unavailable Reason for Referral Diagnostic Imaging Ultrasound (Routine) - Pending Review Specialty Diagnoses / Procedures Referred By Contact Refer red To Contact Diagnoses Suspected anomaly, antepartum, single or unspecified fetus Mabel Narayan MD Procedures [facility] US Comprehensive Single F/U [address] [place], [place] [address] Referral ID Status Reason Start Date Expiration Date Visits V isits Requested Authorized [id number] Pending 10/17/2021 10/17/2022 1 1 Review Reason for Visit Reason Comments Ultrasound L2-polydactyly, 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 NO: [id number] Referring ??MD: BIN GARCIA Site: [facility] Product Development: Karen Smith RDMS : 1990 Age: 30 [...] lb 14 ? oz EFW by ?Hadlock (NRV-NB-ET-FL) Head / Face / Neck Biometry: Musical Instrument Maker Or Repairer ? 4.9 ? mm CM ?4.6 ? mm ANATOMY The following structures appear normal: Head / Neck ? Cranium. Head size. Head shape. Lateral ventricles. Midline falx. Cavum septi pellucidi. Cerebellum. Cisterna magna. Thalami. Face ? Lips. Nose. Heart / Thorax ?4-chamber view. RVOT view. LVOT view. Aortic arch view. Bicaval view. Ductal arch view. Superior vena cava. Inferior vena cava. ? 4-mosham-jgcwpbr view. ? Diaphragm. Abdomen ? Stomach. Kidneys. [...] Name:Barrie XIAO Date: 11/08/2021 10:32am Pat. NO: [id number] MD:FERNANDA REDMOND Site:[place]rapher:ALONZO Jo :1990Age:30 INDICATION Reevaluate [...] 1 lb 14 oz EFW by Hadlock (DOS-ZD-LE-FL) Head / Face / Neck Biometry: Musical Instrument Maker Or Repairer 4.9 mm CM 4.6 mm ANATOMY The following structures appear normal: Head / Neck Cranium. Head size. Head sha pe. Lateral ventricles. Midline falx. Cavum septi pellucidi. Cerebellum. Cisterna magna. Thalami. Face Lips. Nose. Heart / Thorax 4-chamber view. RVOT view . LVOT view. Aortic arch view. Bicaval view. Ductal arch view. Superior vena cava. Inferior vena cava. 8-fzsgtq-lkratua view. Diaphragm. Abdomen Stomach. Kidneys. Bladder. Spine [...] volume appeared no rmal. Mabel Narayan MD [facility] US ORDERABLES documented in this encounter Visit Diagnoses Diagnosis Suspected anomaly, antepartum, sin gle or unspecified fetus - Primary Suspected anomaly, antepartum, sin gle or unspecified fetus documented in this encounter
--- OUTSIDE RECORDS SUMMARY | 2022-02-20 15:36 | XMS_ITS | Encounter Summary ---
:1990 Author Organization [place] Address [facility] [place] [address] Care Team Providers Name Role Phone Unavailable Primary Care Provider Unavailable Reason for Visit Reason Comments Ultrasound RL2-Subopt Encounter Details Date Type Department Care Team Description 11/08/2021 Office Visit [facility] Venu Narayan MD [address] [place] [address] Encounter for Maternal Yordy Cooney MD [address] [place] [address] follow-up ultrasound [facility] (Primary Dx) [address] [facility] [address] [place] [address] Social History Tobacco Use Types [...] for details of today's US at the [facility]. Yordy Cooney MD Maternal- Medicine documented in this encounter Plan of Treatment Not on filedocumented as of this encounter Visit Diagnoses Diagnosis Encounter for follow-up ultrasound of fe steve anatomy - Primary documented in this encounter
--- OUTSIDE RECORDS SUMMARY | 2022-02-20 15:36 | XMS_ITS | Encounter Summary ---
:1990 Author Organization [place] Address [address] [place] [address] Care Team Providers Name Role Phone Unavailable Primary Care Provider Unavailable Reason for Referral Consultation (Routine: Next available opening) - Pending Review Specialty Diagnoses / Procedures Referred By Contact Refer red To Contact Diagnoses related condition, antepartum JoyceJune [place] [id number] [place] [address] Referral ID Status Reason Start Date Expiration Date Visits V isits Requested Authorized [id number] Pending 10/13/2021 10/13/2022 1 1 Review iagnostic Imaging Ultrasound (Routine) - Pending Review Specialty Diagnoses / Procedures Referred By Contact Refer red To Contact Diagnoses related condition, antepartum June Procedures [facility] [address] [facility] [place] [address] Referral ID Status Reason Start Date Expiration Date Visits V isits Requested Authorized [id number] Pending 10/13/2021 10/13/2022 1 1 Review onsultation (Routine) - Pending Review Specialty Diagnoses / Procedures Referred By Contact Refer red To Contact Diagnoses related condition, antepartum June Rh Maternal Med [facility] [address] [facility] [address] [address] [place] [address] Phone: Fax: Referral ID Status Reason Start Date Expiration Date Visits V isits Requested Authorized [id number] Pending 10/13/2021 10/13/2022 1 1 Review Encounter Details Date Type Department Care Team Description 10/13/[address] [facility] Sebastian Garcia related Maternal [facility] condition, [facility] MEDICAL antepartum (Primary [place] [address] [address] Dx) [address] [place], [place] [address] [address] [place], [place] [phone] [address] (Work) [phone] Social History Tobacco Use Types Packs/Day Years [...] 10/13/2022 documented as of this encounter Results [facility] US Comprehensive Single (10/17/2021 3:12 PM [...] Study Clayton e: 10/17/2021 2:22pm Pat. NO: [id number] Referring ??MD: BIN GARCIA Site: [facility] Pigment Furnace Tender: Jerad Dugan RDMS : 1990 Age: 30 [...] 1 lb 1 ?oz EFW by ?Hadlock ([id number]-AJ-HA-FL) Head / Face / Neck Biometry: Welt Wheeler ? 3.4 ? mm CM ?4.8 ? [...] view. Situs. Aortic arch view. 3-vessel view. 5-vvvgyf-kjygtvc view. Cardiac position. Cardiac size. Cardiac ? [...] Name:Barrie XIAO Date: 10/17/2021 2:22pm Pat. 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 Aortic arch view. 3- vessel view. 7-mywssd-ugsbwvi view. Cardiac position. Cardiac size. Cardiac rhythm. [...] RECOMMENDATION We discussed the findings on [facility]'s [facility] with the patient. We reviewed that polydactyly [...] fluid volume appeared no rmal. Hedy Joyce [facility] US ORDERABLES documented in this encounter Visit Diagnoses Diagnosis related condition, antepartum - Primary related condition, antepartum documented in this encounter
--- OUTSIDE RECORDS SUMMARY | 2022-02-20 15:36 | XMS_ITS | Encounter Summary ---
:1990 Author Organization [place] Address [address] [place] [address] Care Team Providers Name Role Phone Unavailable Primary Care Provider Unavailable Reason for Visit Reason Comments Genetic Counseling possible dolichocephaly, nuc neal fold upper end of normal, polydactyly Ultrasound L2-possible dolichocephaly, nuchal fold upper end of normal, polydactyly Encounter Details Date Type Department Care Team Description 10/17/2021 PRE VISIT [facility] Renetta Leone RN Maryanne ic Counseling Maternal Medicine ([facility] dolichocephaly, nuchal [address] fold [address] end of [address] normal, polydactyly); [place], [place] Ultrasound (L 2-possible [phone] dolichocephaly, nuchal [phone] fold upper end of normal, polydac tyly) Social History Tobacco Use Types Packs/Day Years Used Date Smoking Tobacco: Never Assessed Sex Assigned at Date Recorded Not on file documented as of this encounter Plan of Treatment Not on filedocumented as of this encounter Visit Diagnoses Not on filedocumented in this encounter
--- OUTSIDE RECORDS SUMMARY | 2022-02-20 15:36 | XMS_ITS | Encounter Summary ---
:1990 Author Organization [place] Address [address] [facility] [place] [address] Care Team Providers Name Role Phone Unavailable Primary Care Provider Unavailable Reason for Visit Consultation (Routine: Next available opening) - Pending Review Specialty Diagnoses / Procedures Referred By Contact Refer red To Contact Diagnoses related condition, antepartum JoyceJune [facility] [address] [place] [address] Referral ID Status Reason Start Date Expiration Date Visits V isits Requested Authorized [id number] Pending 10/13/2021 10/13/2022 1 1 Review Encounter Details Date Type Department Care Team Description 10/17/2021 Office Visit [facility] Daangelaveronica Violeta l [facility] [address] [id number] related Maternal Mabel Narayan MD [address] [place], [place] [address] condition, antepartum [facility] [place] [address] [facility] [address] [place] [address] Social History Tobacco Use Types [...]
--- OUTSIDE RECORDS SUMMARY | 2022-02-20 15:36 | XMS_ITS | Encounter Summary ---
:1990 Author Organization [place] Address [facility] [place] [address] Care Team Providers Name Role Phone Unavailable Primary Care Provider Unavailable Reason for Referral Diagnostic Imaging Ultrasound (Routine) - Pending Review Specialty Diagnoses / Procedures Referred By Contact Refer red To Contact Diagnoses Suspected anomaly, antepartum, single or unspecified fetus Mabel Narayan MD Procedures [facility] US Comprehensive Single F/U [address] [place], [place] [address] Referral ID Status Reason Start Date Expiration Date Visits V isits Requested Authorized [id number] Pending 10/17/2021 10/17/2022 1 1 Review Reason for Visit Diagnostic Imaging Ultrasound (Routine) - Pending Review Specialty Diagnoses / Procedures Referred By Contact Refer red To Contact Diagnoses Suspected anomaly, antepartum, single or unspecified fetus Mabel Narayan MD Procedures [facility] Comprehensive Single F/U [address] [place], [place] [address] Referral ID Status Reason Start Date Expiration Date Visits V isits Requested Authorized [id number] Pending 10/17/2021 10/17/2022 1 1 Review Encounter Details Date Type Department Care Team Description 11/08/2021 Hospital Encounter [facility] Melissa Scruggs MD [address] [place], [place] [address] Suspected Maternal Yordy Cooney MD [address] [place] [address] anomaly, antepartum, Medicine Center single or [place] unspecified fetus [address] [facility] [address] [place] [address] Social History Tobacco Use Types [...] Procedure Name Priority Date/Time Associated Comments Diagnosis [facility] US COMPREHENSIVE Routine 11/08/2021 11:02 Suspected Results for this SINGLE F/U AM CDT anomaly, procedure are i n antepartum, single the resul ts or unspecified section. fetus documented in this encounter Results [facility] US Comprehensive Single F/U (11/08/2021 11:02 [...] Study Clayton e: 11/08/2021 10:32am Pat. NO: [id number] Referring ??MD: BIN GARCIA Site: [facility] Design Transferrer: Karen Smith RDMS : 1990 Age: 30 [...] lb 14 ? oz EFW by ?Hadlock ([id number]-FL) Head / Face / Neck Biometry: Pourer Buggy Ladle ? 4.9 ? mm CM ?4.6 ? mm ANATOMY The following structures appear normal: Head / Neck ? Cranium. Head size. Head shape. Lateral ventricles. Midline falx. Cavum septi pellucidi. Cerebellum. Cisterna magna. Thalami. Face ? Lips. Nose. Heart / Thorax ?4-chamber view. RVOT view. LVOT view. Aortic arch view. Bicaval view. Ductal arch view. Superior vena cava. Inferior vena cava. ? 9-bqapoq-uoahthq view. ? Diaphragm. Abdomen ? Stomach. Kidneys. [...] Name:HUMPHREY XIAOjoselo Date: 11/08/2021 10:32am Pat. NO: [id number] MD:JUNE CHARLEY [facility] Site:[place]rapher:ALONZO Jo :1990Age:30 INDICATION Reevaluate growth and [...] 1 lb 14 oz EFW by Hadlock ([id number]-FL) Head / Face / Neck Biometry: Pourer Buggy Ladle 4.9 mm CM 4.6 mm ANATOMY The following structures appear normal: Head / Neck Cranium. Head size. Head sha pe. Lateral ventricles. Midline falx. Cavum septi pellucidi. Cerebellum. Cisterna magna. Thalami. Face Lips. Nose. Heart / Thorax 4-chamber view. RVOT view . LVOT view. Aortic arch view. Bicaval view. Ductal arch view. Superior vena cava. Inferior vena cava. 7-hllzsv-jgqvlmh view. Diaphragm. Abdomen Stomach. Kidneys. Bladder. Spine [...] volume appeared no rmal. Mabel Narayan MD [facility] US ORDERABLES documented in this encounter Visit Diagnoses Diagnosis Suspected anomaly, antepartum, sin gle or unspecified fetus documented in this encounter
== END 2022-02-20 15:31 | disposition home or self-care (01) ==
LOC: NFLDREF 15:33
PROVIDERS: Visit Provider Obstetrics & Gynecology
DX: R39.9 Unspecified symptoms and signs involving the genitourinary system (principal); Z39.1 Encounter for care and examination of lactating mother
CPT/HCPCS: 87086

== ENCOUNTER 2022-03-27 15:16 | Emergency (ER) | payer BC, SELFPAY ==
[2022-03-27] VITALS (12 sets, daily range): BP systolic 95–110; BP diastolic 67–74; PULSE 88–123; RESP 16; TEMP 37.7; O2SAT 96–99; BMI 20.6
--- NOTE | 2022-03-27 15:29 | ED.GENADULT ---
HPI - General Adult General Time Seen by Provider: 15:29 Date Seen: 03/27/22 Chief complaint: Post OB/Post- Complication Stated complaint: Heart rate elevated, low blood pressure Time Seen by Provider: 03/27/22 15:23 Source: patient Mode of arrival: ambulatory Limitations: no limitations History of Present Illness HPI narrative: 31-year-old female who is 6 weeks , presented for routine exam and was found to be hypotensive and tachycardic. Patient has been feeling fine. She denies headache, chest pain, shortness of breath, nausea, vomiting, diarrhea, poor oral intake, poor sleep, breast pain, fever. She has been eating and drinking normally. Denies lightheadedness. Related Data Home Medications Medication Instructions Recorded Confirmed prenat.vits,leon,[id number] 1 tab PO QDAY 09/13/21 03/27/22 Previous Rx's Medication Instructions Recorded docusate sodium 100 mg capsule 100 mg PO BID PRN #100 caps 02/14/22 ibuprofen 600 mg tablet 600 mg PO Q6H PRN #60 tabs 02/14/22 Allergies Allergy/AdvReac Type Severity Reaction Status Date / Time Sulfa (Sulfonamide Allergy Unknown Verified 03/27/22 15:24 Antibiotics) [facility] Social History Smoking Status: Never smoker How often do you have a drink containing alcohol: never How often do you have six or more drinks on one occasion: Never AUDIT-C Alcohol total score: 0 Non-prescribed substance use: denies use Little interest or pleasure in doing things: not at all Feeling down, depressed, or hopeless: several days Exam Narrative: Exam Narrative: General: Well-developed and well-nourished, no acute distress Head: Atraumatic and normocephalic Eyes: Pupils are equal reactive, extraocular motions intact, conjunctiva clear ENT: External nose and ears are normal, posterior pharynx without erythema or exudate Neck: No midline cervical tenderness, full spontaneous range of motion the neck, trachea midline, no adenopathy Heart: Regular rate and rhythm no murmurs or thrills Lungs: Clear to auscultation bilaterally without wheezes or crackles Abdomen: Soft, nontender, nondistended with active bowel sounds Musculoskeletal: No tenderness, deformity, or edema Neurologic: Awake, alert, and oriented x3, no gross focal neurologic deficits, cranial nerves intact as tested Psych: Mood and affect are appropriate Skin: No rashes Const: Vital Signs, click to edit/add: Vital Signs - 24 hr 03/27/22 15:20 03/27/22 16:00 03/27/22 15:55 Temperature 99.9 F H Pulse Rate 90 Pulse Rate [Pulse Oximeter] 88 Pulse Rate [orthos tatic lying] 93 Pulse Rate [orthos tatic sitting] 100 Pulse Rate [orthos tatic standing] 123 H Respiratory Rate 16 Blood Pressure 101/68 Blood Pressure [Le ft Upper Arm] 110/74 Blood Pressure [or thostatic lying] 101/68 Blood Pressure [or thostatic sitting] 97/70 Blood Pressure [or thostatic standing ] 95/67 Pulse Oximetry 99 97 Oxygen Delivery Me thod Room Air 03/27/22 15:56 03/27/22 15:57 03/27/22 15:58 Temperature Pulse Rate 100 111 H 123 H Pulse Rate [Pulse Oximeter] Pulse Rate [orthos tatic lying] Pulse Rate [orthos tatic sitting] Pulse Rate [orthos tatic standing] Respiratory Rate Blood Pressure 97/70 95/67 Blood Pressure [Le ft Upper Arm] Blood Pressure [or thostatic lying] Blood Pressure [or thostatic sitting] Blood Pressure [or thostatic standing ] Pulse Oximetry 97 98 97 Oxygen Delivery Me thod 03/27/22 16:00 03/27/22 16:15 Temperature Pulse Rate 96 90 Pulse Rate [Pulse Oximeter] Pulse Rate [orthos tatic lying] Pulse Rate [orthos tatic sitting] Pulse Rate [orthos tatic standing] Respiratory Rate Blood Pressure Blood Pressure [Le ft Upper Arm] Blood Pressure [or thostatic lying] Blood Pressure [or thostatic sitting] Blood Pressure [or thostatic standing ] Pulse Oximetry 97 96 Oxygen Delivery Me thod Course Course Hospital Course: Patient seen examined, external records from OB appointment earlier today reviewed. Patient presents from clinic with hypotension and tachycardia recorded there. Here, she is not hypotensive or tachycardic. She has no other complaints. Labs ordered along with IV fluids. Temperature is borderline and will evaluate for sources of fever although certainly patient clinically appears well and sepsis is unlikely. Orthostatic vital signs requested. Reevaluation(s) Reevaluation #1: Orthostatic vital signs positive with significant increase in heart rate with standing. Fluids have been initiated. Time: 16:04 Reevaluation #2: Labs independently interpreted by me demonstrate normal white blood cell count, normal hemoglobin, basic panel is reassuring urinalysis is negative. Chest x-ray ordered to evaluate for cardiomegaly although patient has no chest pain, shortness of breath, or abnormal heart sounds to suggest -induced cardiomyopathy. If chest x-ray is negative patient can be discharged with outpatient follow-up. Time: 16:59 Reevaluation #3: Chest x-ray independently interpreted by me does not demonstrate any acute infiltrates, no evidence for cardiomegaly. Based on evaluation today, no evidence for sepsis or severe infection by history, physical exam, or labs. No evidence for acute coronary syndrome, cardiomegaly, or heart failure. No evidence for electrolyte disturbance or renal failure. No evidence for pulmonary embolism. Time: 17:17 Vital Signs Vital signs: Initial Vital Signs Temperature 99.9 F H 03/27/22 15:20 Temperature Source Temporal Artery Scan 03/27/22 15:20 Pulse Rate 88 03/27/22 15:20 Pulse Rhythm 03/27/22 15:20 Pulse Strength 3+ Normal 03/27/22 15:20 Respiratory Rate 16 03/27/22 15:20 Blood Pressure 110/74 03/27/22 15:20 Blood Pressure Mean 86 03/27/22 15:20 Blood Pressure Position Sitting 03/27/22 15:20 Pulse Oximetry 99 03/27/22 15:20 Oxygen Delivery Method 03/27/22 15:20 Vital Signs Temperature 99.9 F H 03/27/22 15:20 Pulse Rate 88 03/27/22 15:20 Respiratory Rate 16 03/27/22 15:20 Blood Pressure 110/74 03/27/22 15:20 Pulse Oximetry 99 03/27/22 15:20 Oxygen Delivery Method 03/27/22 15:20 Temperature 99.9 F H 03/27/22 15:20 Pulse Rate 90 03/27/22 16:15 Respiratory Rate 16 03/27/22 15:20 Blood Pressure 101/68 03/27/22 16:00 Pulse Oximetry 96 03/27/22 16:15 Oxygen Delivery Method 03/27/22 15:20 Medical Decision Making Lab Data Labs: Lab Results 03/27/22 03/27/22 03/27/22 Range/Units 15:30 15:30 15:30 WBC 10.52 (4.50-11.00) K/uL RBC 5.13 (4.00-5.20) m/uL Hgb 15.1 (12.0-16.0) gm/dL Hct 45.0 (33.0-51.0) % MCV 88 (80-100) fL MCH 29 (26-34) pg MCHC 34 (32-36) gm/dL RDW Coeff of Taran 10.8 L (11.5-15.5) % Plt Count 220 (140-440) K/uL Neut % (Auto) 78.4 H (42.0-72.0) % Lymph % (Auto) 10.8 L (20-44) % [place] % (Auto) 9.4 (0.0-11.0) % Eos % (Auto) 1.1 (0.0-7.0) % Baso % (Auto) 0.2 (0.0-3.0) % Neut # (Auto) 8.20 H (1.7-7.0) K/uL Lymph # (Auto) 1.10 (0.90-2.90) K/uL [place] # (Auto) 1.00 H (0.00-0.90) K/UL Eos # (Auto) 0.12 (0.00-0.50) K/uL Baso # (Auto) 0.02 (0.00-0.30) K/uL Sodium 141 (135-149) mmol/L Potassium 3.9 (3.6-5.1) mmol/L Chloride 105 (96-114) mmol/L Carbon Dioxide 27 (20-32) mmol/L BUN 17 (5-24) mg/dL Creatinine 0.8 (0.5-1.5) mg/dL Estimated Creat Clear 86.75 Estimated GFR 100 ml/min Glucose 96 (60-115) mg/dL Lactate 0.8 (0.5-1.9) mmol/L Calcium 9.4 (8.4-10.6) mg/dL Urine Color (Yellow) Urine Appearance (Clear) Urine pH (5.0-8.5) Ur Specific [place] (1.000-1.030) Urine Protein (Negative) Urine Glucose (UA) (Negative) Urine Ketones (Negative) Urine Blood (Negative) Urine Nitrite (Negative) Urine Bilirubin (Negative) Urine Urobilinogen (0.2-1.0) Ur Leukocyte Esterase (Negative) Urine RBC (0-2) Urine WBC (0-5) Ur Squamous Epith Cells (None-Few) Urine Bacteria (None) 03/27/22 Range/Units 15:45 WBC (4.50-11.00) K/uL RBC (4.00-5.20) m/uL Hgb (12.0-16.0) gm/dL Hct (33.0-51.0) % MCV (80-100) fL MCH (26-34) pg MCHC (32-36) gm/dL RDW Coeff of Taran (11.5-15.5) % Plt Count (140-440) K/uL Neut % (Auto) (42.0-72.0) % Lymph % (Auto) (20-44) % [place] % (Auto) (0.0-11.0) % Eos % (Auto) (0.0-7.0) % Baso % (Auto) (0.0-3.0) % Neut # (Auto) (1.7-7.0) K/uL Lymph # (Auto) (0.90-2.90) K/uL [place] # (Auto) (0.00-0.90) K/UL Eos # (Auto) (0.00-0.50) K/uL Baso # (Auto) (0.00-0.30) K/uL Sodium (135-149) mmol/L Potassium (3.6-5.1) mmol/L Chloride (96-114) mmol/L Carbon Dioxide (20-32) mmol/L BUN (5-24) mg/dL Creatinine (0.5-1.5) mg/dL Estimated Creat Clear Estimated GFR ml/min Glucose (60-115) mg/dL Lactate (0.5-1.9) mmol/L Calcium (8.4-10.6) mg/dL Urine Color Yellow (Yellow) Urine Appearance Clear (Clear) Urine pH 6.0 (5.0-8.5) Ur Specific [place] 1.025 (1.000-1.030) Urine Protein Negative (Negative) Urine Glucose (UA) Negative (Negative) Urine Ketones Trace A (Negative) Urine Blood Negative (Negative) Urine Nitrite Negative (Negative) Urine Bilirubin Negative (Negative) Urine Urobilinogen 0.2 (0.2-1.0) Ur Leukocyte Esterase Negative (Negative) Urine RBC 0-2 (0-2) Urine WBC 0-2 (0-5) Ur Squamous Epith Cells None (None-Few) Urine Bacteria None (None) Discharge Plan Discharge Clinical Impression: Orthostatic hypotension Patient Disposition: Home, Self-Care Condition: Stable Instructions: Hypotension (ED) Activity Level: No Restrictions Discharge Diet: Regular Prescriptions: No Action prenat.vits,leon,[id number] Tablet 1 tab PO QDAY docusate sodium 100 mg Capsule 100 mg PO BID PRNQty: 100 0RF Rx Instructions: Eulogio 1 cap 1-2 times a day as needed for constipation ibuprofen 600 mg Tablet 600 mg PO Q6H PRNQty: 60 0RF Follow Up/Referrals: Provider,Not a Local [Primary Care Provider] - Stand Alone Forms: [employer] Info Instructions
[2022-03-27 15:54] LABS: Appearance Urine Clear (Clear); Bilirubin Urine Negative (Negative); Blood Urine Negative (Negative); Color Urine Yellow (Yellow); Glucose Urine Negative (Negative); Ketones Urine Trace (Negative); Leukocyte Esterase Urine Negative (Negative); Nitrite Urine Negative (Negative); Protein Urine Negative (Negative); Specific Gravity Urine 1.025 (1.000-1.030); Urobilinogen Urine 0.2 (0.2-1.0)
[2022-03-27 15:56] LABS: Lactate* 0.8 mmol/L (0.5-1.9)
[2022-03-27 16:00] LABS: Basophils Absolute Auto 0.02 K/uL (0.00-0.30); Basophils Percent Auto 0.2 % (0.0-3.0); Eosinophils Absolute Auto 0.12 K/uL (0.00-0.50); Eosinophils Percent Auto 1.1 % (0.0-7.0); Hemoglobin* 15.1 gm/dL (12.0-16.0); Immature Granulocytes Abs Auto 0.01 K/uL (0.00-0.30); Immature Granulocytes Pct Auto 0.1 %; Lymphocytes Percent Auto 10.8 % (20-44); Mean Corpuscular HGB Conc 34 gm/dL (32-36); Mean Corpuscular Hemoglobin 29 pg (26-34); Mean Corpuscular Volume 88 fL (80-100); Monocytes Percent Auto 9.4 % (0.0-11.0); Neutrophils Percent Auto 78.4 % (42.0-72.0); Platelet Count* 220 K/uL (140-440); RDW Coefficient of Variation % 10.8 % (11.5-15.5); Red Blood Count 5.13 m/uL (4.00-5.20); White Blood Count* 10.52 K/uL (4.50-11.00)
[2022-03-27] MEDS: 0.9 % SODIUM CHLORIDE 1000 ml 1,000 ML IV (16:00)
[2022-03-27 16:11] LABS: Slide Review Reflex No
[2022-03-27 16:15] LABS: Chloride* 105 mmol/L (96-114); Sodium* 141 mmol/L (135-149)
[2022-03-27 16:16] LABS: Potassium* 3.9 mmol/L (3.6-5.1)
[2022-03-27 16:18] LABS: Blood Urea Nitrogen* 17 mg/dL (5-24); Carbon Dioxide* 27 mmol/L (20-32); Creatinine* 0.8 mg/dL (0.5-1.5); Est. Creatinine Clearance* 86.75; Estimated Glomerular Filt Rate 100 ml/min
[2022-03-27 16:19] LABS: Calcium* 9.4 mg/dL (8.4-10.6); Glucose* 96 mg/dL (60-115)
[2022-03-27 16:23] LABS: RBC Urine 0-2 (0-2); WBC Urine 0-2 (0-5)
--- NOTE | 2022-03-27 16:50 | CRLHL7_ITS ---
For Patients: As a result of the Cures Act, medical imaging exams and procedure reports are released immediately into your electronic medical record. You may view this report before your referring provider. If you have questions, please contact your health care provider. INDICATION: Tachycardia, hypotension TECHNIQUE: Chest 2 views. COMPARISON: None FINDINGS: Cardiovascular and mediastinum: Heart size and vasculature are normal in caliber and appearance. Mediastinum is within normal limits. Lungs and pleural spaces: Lungs are clear. No sign of infiltrate or mass. No sign of pleural effusion. No pneumothorax. Bones and soft tissues: No significant findings. IMPRESSION: No sign of acute disease. Dictated by Lilliana Gilliland MD @ 03/27/2022 5:25:58 PM (Electronically Signed)
== END 2022-03-27 17:28 | disposition home or self-care (01) ==
PROVIDERS: Emergency Provider Family Medicine
DX: I95.1 Orthostatic hypotension (principal); Z3A.01 Less than 8 weeks gestation of pregnancy
CPT/HCPCS: 36415; 71046; 80048; 81001; 83605; 84443; 85025; 99284; J7030